=== PATIENT | male | born 1950 | race Caucasian/White ===

== ENCOUNTER → 2016-06-25 | Day surgery (SDC) | payer OTHER ==
[~2016-06-25] VITALS: Ht 185.4 cm; Wt 90.7 kg
[~2016-06-25] MED LIST: ASPIRIN EC81 M1 PO; ATORVASTATIN CA80 M1 PO; COZAAR50 M1 PO; DOCUSATE SODIU100 M3 PO; METOPROLOL SUC100 M2 PO; PERCOCET 5-3251 EACH PO; VITAMIN D250000 UNIT PO; ZETIA10 M1 PO
--- NOTE | 2016-06-25 10:37 | ULTRASOUND CBW REPORT ---
EXAMINATION: ULTRASOUND GUIDED NEEDLE LOCALIZATION BREAST, RIGHT CLINICAL INFORMATION: Preoperative localization of intraductal papillary lesion with atypical ductal hyperplasia in the right breast at 9:00. COMPARISON: Mammogram dated 05/21/2016 and 04/18/2015. Ultrasound dated 05/21/2016 and 05/09/2016. TECHNIQUE NEEDLE LOC: Proper informed consent is obtained from the patient after discussion of the procedure, potential risks and complications, and alternatives including declining the procedure today. Patient was given an opportunity for questions. The patient appeared to understand. The patient consented to the procedure and signed the consent form. GUIDANCE: Initially, digital mammography guidance was used with a superior approach. However, due to difficulties with patient positioning as well as patient's transient fainting, the needle localization was converted to an ultrasound-guided needle localization. APPROACH: Lateral TARGET: Biopsy clip in the lateral subareolar right breast. ANESTHESIA: 20 mL Xylocaine 2% LOCALIZATION MARKER: Kopans 5 cm needle. The skin was prepped and local anesthesia administered. The needle was positioned and position assessed with real-time ultrasonography guidance. The wire was hooked into position. The patient tolerated the procedure well and had no immediate complication. Diagram was marked for the surgeon. The target is a biopsy clip in the right breast 9:00 position, approximately 1 cm posterior to the proximal thick segment of the wire, 2.5 cm deep to the skin with 10.5 cm of the wire remaining external to the skin. IMPRESSION: Status post right breast needle localization with wire hooked into position. The target is a biopsy clip in the right breast 9:00 position, approximately 1 cm posterior to the proximal thick segment of the wire, 2.5 cm deep to the skin with 10.5 cm of the wire remaining external to the skin. Findings discussed with Dr. Hurd 06/25/2016, 10:30 AM.
--- NOTE | 2016-06-27 11:36 | Operative Report ---
Operative/Inv Procedure Report Surgery Date: 06/25/16 Name of Procedure: Right breast needle localization lumpectomy Pre-Operative Diagnosis: Right breast ADH, history of cancer Post-Operative Diagnosis: Same Estimated Blood Loss: scant Surgeon/Property Claim Rep: HAMLET VILLALOBOS,YOLANDA GONZALEZ Anesthesia: general endotracheal tube Operative/Procedure Note Note: Patient was positioned supine, with his arms abducted, we discussed the wire localization with the radiologist films were reviewed and we aimed an incision between the entry point and the area overall now ellipse to include the previous incision measuring about 3 cm long we marked it. Next the patient's right breast and chest area were clipped prepped and draped in the usual sterile fashion, the marked area was infiltrated with local anesthetic and then the skin was incised with a 15 blade and then incision was deepened with cautery and a lumpectomy of tissue was developed inferiorly based with respect to the trajectory of the wire which was mostly dermal before it entered the breast tissue as discussed preoperatively the wire was not next to the clip after mobilizing the wire into the incision from its entry point and completing the lumpectomy favoring the inferior and posterior parts of the breast for the lumpectomy, it was excised we checked it with the x-ray in the room there was no clip therapy we could see the clip inferior to our lumpectomy so I excised that area around the clip as additional inferior margin and we marked it for the pathologist and I went over with it for the pathologist as well for the inking. The lumpectomy site was then checked for hemostasis with cautery and reapproximated in layers using interrupted 3-0 Vicryl sutures subdermally and a running 4-0 nylon for the skin itself was a little tight so I used a nylon. This was covered with Telfa and Tegaderm but avoiding adhesive on the nipple itself. EBL minimal lap and sponge counts correct wound expectancy clean IV fluids crystalloid complications none patient tolerated the procedure well was awakened extubated and returned to the recovery room in satisfactory condition.
--- NOTE | 2016-06-28 09:17 | MAMMOGRAPHY REPORT ---
EXAMINATION: MM NEEDLE LOCALIZATION SPECIMEN FROM THE BREAST, RIGHT CLINICAL INDICATION: Excisional biopsy of intraductal papillary lesion with atypical ductal hyperplasia. COMPARISON: Needle localization study from earlier today. TECHNIQUE: Single specimen radiograph was obtained. FINDINGS: The radiograph of the excised surgical specimen shows that the hookwire is delivered intact. The specimen does not contain the marker clip. IMPRESSION: Excisional specimen reveals satisfactory removal of the wire. The marker clip, however, is not included on the specimen. These findings were communicated to the surgeon in the OR at the time of specimen radiography, who informed me that additional margins were resected, at which time the biopsy clip was identified. No additional specimen radiograph was taken since the biopsy clip reportedly fell out of the additional specimen obtained.
== END ==
LOC: STS 01:52 → CBW.IIU 08:00 → CBW.MAMMO 08:30
DX: C50.921 Malignant neoplasm of unspecified site of right male breast (principal); Z85.3 Personal history of malignant neoplasm of breast; E78.2 Mixed hyperlipidemia; I10 Essential (primary) hypertension; I25.2 Old myocardial infarction
CPT/HCPCS: 76942; 88305; 88307; J0131; J0690; J1100; J1885; J2001; J2250; J2405

== ENCOUNTER 2016-08-09 04:04 | Observation (INO) | payer OTHER ==
[~2016-08-09] VITALS: Ht 185.4 cm; Wt 90.7 kg
[~2016-08-09 04:04] MED LIST changes: -DOCUSATE SODIU100 M3 PO; -PERCOCET 5-3251 EACH PO
--- NOTE | 2016-08-09 15:05 | NUCLEAR MEDICINE REPORT ---
EXAMINATION: LYMPHOSCINTIGRAPHY CLINICAL INFORMATION: Right breast cancer COMPARISON: None. TECHNIQUE: A total of 1.0 mCi technetium 99m Lymphoseek was injected in divided doses around the rightareola by Dr. Mendoza . Images of the right breast and axilla in the anterior, DEL CID, and left lateral projections were obtained with simultaneous visualization of the body silhouette using a cobalt flood source, with the patient positioned between the flood source and the gamma camera. FINDINGS: A sentinal node is visualized in the right axilla. Multiple second echelon node are visualized in the right axilla. IMPRESSION: A sentinal node in the right axilla is well visualized.
--- NOTE | 2016-08-09 17:42 | Admission Core Measures ---
Admission Meds I reviewed the following Meds: Current Medications Sig/Neli Start time Last Medication Dose Stop Time Status Admin Cefazolin Sodium 1,000 MG ONE 08/09 0000 NR (Kefzol-Ancef Inj) 08/09 2359 Sodium Chloride 100 ML (Normal Saline 0.9%) Acute Coronary Syndrome Inclusion Criteria ACS Diagnosis No Inpatient Core Measures LDL Reminder: If No, please order W/I first 24hr of stay Congestive Heart Failure Inclusion Criteria CHF Diagnosis No Cerebrovascular accident Inclusion Criteria CVA/TIA Diagnosis No Inpatient Core Measures Bedside Swallow Eval Reminder: If BSE failed, place ST order Antithrombotic Reminder: Order Antithrombotic Medication by end of day 2 Antithrombotic Reminder: Document Reason Antithrombotic Not ordered by end of day 2 AFIB/Flutter Reminder: If Present, add to problem list AFIB/Flutter Reminder: Order Anticoag Medication for pts with AFIB/Flutter Atherosclerosis Reminder: If Present, add to problem list LDL Reminder: If No, please order W/I first 24hr of stay PT Order Reminder: If No, please order Venous thromboembolism Inpatient Core Measures VTE Risk Factors: Age > 40, Cancer/chemo/oth therapy, Surgery [facility] prophylaxis d/t No contraindications No VTE Pharm Prophylaxis d/t No contraindications Inclusion Criteria - Per Current guidelines, there needs to be overlap - treatment for the first 5 days of Warfarin therapy. - Parenteral Anticoagulation (IV or SC) needs to be - given along with Warfarin therapy. VTE Diagnosis No VTE Type NONE VTE Confirmed by (Test) NONE Problem List As ranked by this Provider includes Assessment & Plan 1. S/P mastectomy 2. Breast cancer in male HOME MEDS Home Med List Aspirin (Ecotrin*) 81 MG TABLET.DR 1 TAB PO BID HEART/BLOOD (Reported) Atorvastatin Calcium 80 MG TABLET 1 TAB PO DAILY CHOLESTEROL (Reported) Ergocalciferol (Vitamin D2) (Vitamin D2) 50,000 UNIT CAPSULE 1 CAP PO QW SUPPLEMENT (Reported) Ezetimibe (Zetia) 10 MG TABLET 1 TAB PO DAILY CHOLESTEROL (Reported) Losartan Potassium (Cozaar) 50 MG TABLET 1 TAB PO BID BP (Reported) Metoprolol Succinate 100 MG TAB.ER.24H 1 TAB PO DAILY BP (Reported)
[2016-08-09 18:24] VITALS: BP 120/60
--- NOTE | 2016-08-09 20:25 | PN- General Surgery ---
Subjective Subjective: No complaints. Expected soreness. Tolerating clears. No nausea. Not yet out of bed. Due to void this evening. He voided just before surgery around 1:30 pm. No dizziness. No shortness of breath. No chest pains. Objective Vital Signs and I&Os Vital Signs Date Time Temp Pulse Resp B/P Pulse O2 O2 Flow FiO2 Ox Delivery Rate 08/09 1824 97.9 83 18 120/60 93 Room Air Physical Exam: General - alert & oriented x 3. comfortable. no acute distress. Lungs - clear bilaterally. no w/r/r. Cardiac - s1s2. reg. Chest - right sided dressing c/d/i. APRIL drain with serosang drainage. Abdomen - soft. nontender. Extremities - warm bilaterally. no c/c/e. calves soft and nontender b/l. Assessment/Plan Assessment/Plan This 66 year old white male is POD#0 s/p right mastectomy, sn biopsy, APRIL drain x 1 for breast ca advance diet as tolerated d/c iv fluids when tolerating diet ancef x 2 doses post-op hep sc - dvt ppx, to start in the morning ?hold asa bid. will d/w oob/ambulation due to void tonight f/u AM labs home meds ordered, including beta johanna for the morning monitor APRIL drain output IS teaching 23hr obs. likely d/c home tomorrow will d/w Core Measures/Miscellaneous Venous Thromboembolism VTE Risk Factors: Age > 40, Cancer/chemo/oth therapy, Surgery VTE Contraindications: No Contraindications VTE Diagnosis: No VTE Type: NONE VTE Confirmed by (Test): NONE Beta Johanna Is Beta Johanna a Home Med? Yes If Yes, Was This Ordered Today? Yes Antibiotics Is Patient on Antibiotics? Yes If Yes: prophylaxis
--- NOTE | 2016-08-09 20:28 | Patient Discharge Instructions ---
Discharge Instructions General Discharge Information You were seen/treated for: breast cancer You had these procedures: right sided mastectomy, sn biopsy Watch for these problems: fever>101.3, increased pain, redness/swelling/drainage No bath, but you may shower: Yes Other wound care: dressing changes as directed by Special Instructions: leave white steri strips in place. keep incision clean & dry. Please empty drain daily and record amount. Your visiting nurse will help you with this. Diet Continue normal diet: Yes Recommended Diet: Regular Activity Full Activity/No Limits: No Activity Self Limited: Yes Pounds, do NOT lift more than: 5 Other activity limits: no heavy lifting. no strenuous activity. Acute Coronary Syndrome Inclusion Criteria At DC or during hospital stay patient has or had the following: ACS DIAGNOSIS No Discharge Core Measures Meds if any: Prescribed or Continued at Discharge Meds if any: NOT Prescribed or Continued at Discharge Congestive Heart Failure Inclusion Criteria At DC or during hospital stay patient has or had the following: CHF DIAGNOSIS No Discharge Core Measures Meds if any: Prescribed or Continued at Discharge Meds if any: NOT Prescribed or Continued at Discharge Cerebrovascular accident Inclusion Criteria At DC or during hospital stay patient has or had the following: CVA/TIA Diagnosis No Discharge Core Measures Meds if any: Prescribed or Continued at Discharge Meds if any: NOT Prescribed or Continued at Discharge Venous thromboembolism Inclusion Criteria VTE Diagnosis No VTE Type NONE VTE Confirmed by (Test) NONE Discharge Core Measures - Per Current guidelines, there needs to be overlap - treatment for the first 5 days of Warfarin therapy. - If discharged on Warfarin prior to 5 days of - overlap therapy, the patient will need to be - assessed for post discharge needs including - *Post discharge parental anticoagulation - *Warfarin and/or parental anticoagulation education - *Follow up date to check INR post discharge At least 5 days overlap therapy as Inpatient No Meds if any: Prescribed or Continued at Discharge Note: Overlap Therapy is Warfarin and Anticoagulant Meds if any: NOT Prescribed or Continued at Discharge
[2016-08-09 20:30] VITALS: BP 110/68
[2016-08-09] MEDS ORDERED: DOCUSATE SODIU100 M3 PO (20:30)
[2016-08-09] MEDS ORDERED: PERCOCET 5-3251 EACH PO (20:30)
[2016-08-09 23:45] VITALS: BP 112/70
[2016-08-10 00:30] VITALS: BP 112/70
[2016-08-10 04:36] VITALS: BP 118/72
[2016-08-10 09:07] VITALS: BP 118/72
--- NOTE | 2016-08-10 11:45 | PN- General Surgery ---
Subjective Subjective: POD #1 s/p right mastectomy/sentinel lymph node biopsy for recurrent breast cancer. Resting in bed. No complaints of pain. Ambulating well. Voiding spontaneously. Objective Vital Signs and I&Os Vital Signs Date Time Temp Pulse Resp B/P Pulse O2 O2 Flow FiO2 Ox Delivery Rate 03/11 0907 118/72 03/ 0436 97.7 68 18 118/72 98 Room Air / 0030 97.5 76 18 112/70 96 Room Air 08/09 2345 97.7 77 18 112/70 96 Room Air 08/09 2240 97.7 77 16 120/72 / 2030 98.2 72 18 110/68 95 Room Air / 1947 Room Air 08/09 1824 97.9 83 18 120/60 93 Room Air Intake & Output / 1600 / 0800 / 0000 / 1600 08/09 0800 08/09 0000 Intake Total 30 400 Output Total 20 Balance 30 380 Intake, IV 200 Intake, Oral 30 200 Output, 20 Drainage Output, Urine 0 Patient 200 lb Weight Physical Exam: Gen: AAOx3 in NAD Cor: S1+S2+ Lungs: CTA raymond. Chest dressing C/D/I. APRIL holding suction, serosanguinous drainage (40ml total since placement) Abd: soft, NT, ND, +BS x4 Ext: no edema or calf tenderness to raymond lower extremities. Results Last 48 Hours of Labs: Laboratory Tests 03/ 0600 Chemistry Sodium Cancelled Potassium Cancelled Chloride Cancelled Carbon Dioxide Cancelled Anion Gap Cancelled BUN Cancelled Creatinine Cancelled BUN/Creatinine Ratio Cancelled Hematology CBC w Diff Cancelled WBC Cancelled RBC Cancelled Hgb Cancelled Hct Cancelled MCV Cancelled MCH Cancelled RDW Cancelled Plt Count Cancelled MPV Cancelled PUBS MCHC Cancelled Assessment/Plan Assessment/Plan A: POD #1 s/p right breast mastectomy with sentinel lymph node biopsy; APRIL x1. AVSS. Plan: Keep APRIL drain. Aspirin to start today. will d/c home with VNA and outpatient follow up with Dr. Hurd. Core Measures/Miscellaneous Venous Thromboembolism VTE Risk Factors: Age > 40, Cancer/chemo/oth therapy, Surgery VTE Contraindications: No Contraindications VTE Diagnosis: No VTE Type: NONE VTE Confirmed by (Test): NONE Beta Johanna Is Beta Johanna a Home Med? Yes If Yes, Was This Ordered Today? Yes Antibiotics Is Patient on Antibiotics? Yes If Yes: prophylaxis
--- NOTE | 2016-08-13 23:06 | Operative Report ---
Operative/Inv Procedure Report Surgery Date: 08/09/16 Name of Procedure: Right total mastectomy, right axillary sentinel lymph node biopsy, injection of blue dye Pre-Operative Diagnosis: Right breast cancer Post-Operative Diagnosis: same Estimated Blood Loss: scant Surgeon/Special Education Teachers: HAMLET VILLALOBOS,YOLANDA GONZALEZ Anesthesia: general endotracheal tube Operative/Procedure Note Note: We reviewed the preoperative lymphoscintigraphy images, patient was placed on the OR table supine and his chest and neck and right axilla and upper arm were prepped and draped in the usual sterile fashion. There was a scar from previous excision on right breast in the 8 o'clock position about a centimeter from the areolar edge, just superior to this scar I injected 2 mL's of diluted blue dye, subdermally. In the previous axillary incision scar we injected local anesthetic and we incised this, about 3 cm long, we deepened this incision with both sharp and blunt dissection at first with cautery through the clavipectoral fascia place a Fuchs retractor in and underneath the edge of the pectoralis , this sentinel node was deep and medial as seen on the imaging, we used the neoprobe to guide us at the primary injection site the counts were as high as 5, 000 in the axilla they were as high as 200 but as we got closer to the node the increased. Eventually we were able to pinpoint this lymph node it was very small and round and it had a count of 500 mm when we excised it. The background count now is less than 10. This little node was not blue. We did not see any other lymph nodes in the area. Care was taken to not injure any vessels or nerves during the dissection. This incision was then reapproximated with interrupted 3-0 Vicryl sutures for the clavipectoral fascia and subcutaneous followed by running subcuticular 4-0 Biosyn suture for the skin itself followed by Mastisol Steri-Strips. Final dressing was applied after the mastectomy Next we marked an elliptical incision on the right breast, around the nipple areolar complex and also including the previous scar, following the skin lines. This was deepened just through the dermis into the superficial subcutaneous layer and then Marni clamps were placed into the dermis and the upper flap retracted upwards to separate the subcutaneous layer from the breast, some vessels were encountered in the subcutaneous layer these were small and preserved at times will need cautery to control them on the other side deeper coming through the muscle were vessels as well as we proceeded superiorly towards the clavicle. Once the superior flap was finished we started to take the superior portion of the breast off the muscle including the fascia using Allis clamps to help retract we also developed the inferior flap towards the rectus muscle medially and the serratus laterally and the dissection and separation continued from both sides including lifting the breast off of the muscle, eventually converging at the tail of the breast at the end laterally this did not enter the field of the sentinel node biopsy. After the breast was completely removed we checked for hemostasis irrigated and placed a round Chapo-Yeung drain looping in the excision site exiting separately and secured to the skin with a silk suture. The main incision was closed in layers using 3- 0 Vicryl sutures interrupted subdermally and running subcuticular 4-0 Biosyn suture for the skin itself followed by Mastisol Steri-Strips and an island dressing. The estimated blood loss minimal lap and sponge counts were correct wound expectancy was clean IV fluids crystalloid complications none the patient tolerated the procedure well.
== END 2016-08-10 12:48 | disposition home health service (06) ==
LOC: ENRESERVDT → ENRESERVTM → STS 04:04 → EDSTATUS 07:00 → SDA 07:00 → STS 07:00 → XRY 09:00 → ENPENDDIS 16:46 → PACUH 16:46 → 2NA 18:14
PROVIDERS: ADMIT Surgery
DX: D05.91 Unspecified type of carcinoma in situ of right breast (principal)
CPT/HCPCS: 6030; 36415; 82436; 88307; 96372; A9520; G0378; J0131; J0690; J1644; J2405; J7042; J7508